=== PATIENT | female | born 1945 | race Caucasian/White ===

== ENCOUNTER 2016-12-26 20:02 | Emergency (ER) | payer MEDICARE, MEDICAID ==
--- NOTE | 2016-12-26 21:15 | RAD ---
Indication: Left shoulder pain. 2 views of left shoulder demonstrates a fracture through the surgical neck of left humerus with overriding of the fracture fragments. Clavicle is intact. IMPRESSION: Fracture with impaction surgical neck left humerus.
--- NOTE | 2016-12-26 23:03 | ED ---
Carlo Dumont Rebecca, scribed for Mao Garner MD on 12/26/16 at 2215 . Upper Extremity Pain - HPI Summary HPI Summary: Pt is a 71 y/o F who presents to the ED c/o L shoulder pain s/p mechanical fall. Fall occurred on 12/19 (1 week ago) and pain began immediately s/p fall. Pain is discrete to the L shoulder and has been constant and worsening since onset. Pain is currently ranked 8/10 and characterized as sharp. Sx aggravated and alleviated by nothing, unchanged by Tylenol. Denies numbness/tingling. She was evaluated by [facility] the day of the fall, confirmed L shoulder fx with an XR, was given a sling and D/C to home. - History of Current Complaint Chief Complaint: EDExtremityUpper Stated Complaint: SHOULDER INJURY Time Seen by Provider: 12/26/16 22:14 Hx Obtained From: Patient Mechanism Of Injury: Fall From A Standing Position Onset/Duration: Started Weeks Ago - 1 week ago, Still Present Timing: Constant Severity Initially: Moderate Severity Currently: Severe - 8/10 Pain Location: Shoulder - Left Character: Sharp Aggravating Factor(s): Nothing Alleviating Factor(s): Nothing Associated Signs & Symptoms: Positive: Negative. Negative: Numbness/Tingling - Allergies/Home Medications Allergies/Adverse Reactions: Allergies Allergy/AdvReac Type Severity Reaction Status Date / Time Aspirin Allergy Unknown Verified 12/26/16 20:15 Reaction Details Latex Allergy Unknown Verified 12/26/16 20:15 Reaction Details Penicillins Allergy Unknown Verified 12/26/16 20:15 Reaction Details Vinyl Ether Allergy Unknown Verified 12/26/16 20:15 Reaction Details PMH/Surg Hx/FS Hx/Imm Hx Cardiovascular History: Reports: Hx Hypertension Musculoskeletal History: Reports: Hx Rheumatoid Arthritis, Hx Fibromyalgia - Cancer History Hx Chemotherapy: No Hx Radiation Therapy: No Infectious Disease History: No Infectious Disease History: Denies: Traveled Outside the [place] in Last 30 Days - Family History Known Family History: Positive: Hypertension - Social History Alcohol Use: None Substance Use Type: Reports: None Smoking Status (MU): Current Every Day Smoker Amount Used/How Often: 1 PPD Review of Systems Positive: Arthralgia - L shoulder pain Neurological: Other - Denies tingling Negative: Numbness All Other Systems Reviewed And Are Negative: Yes Physical Exam Triage Information Reviewed: Yes Vital Signs On Initial Exam: Initial Vitals Temp Pulse Resp BP Pulse Ox 97.1 F 71 14 154/69 97 12/26/16 20:05 12/26/16 20:05 12/26/16 20:05 12/26/16 20:05 12/26/16 20:05 Vital Signs Reviewed: Yes Appearance: Positive: Well-Appearing, Pain Distress - mild discomfort Skin: Positive: Warm Head/Face: Positive: Normal Head/Face Inspection ENT: Positive: Hearing grossly normal Respiratory/Lung Sounds: Positive: Breath Sounds Present Musculoskeletal: Positive: Other - tender prox humerus with ecchymotic area pain to motion Neurological: Positive: Sensory/Motor Intact, Alert, Oriented to Person Place, Time Psychiatric: Positive: Anxious Diagnostics - Vital Signs Vital Signs Temp Pulse Resp BP Pulse Ox 12/26/16 21:17 98.7 F 62 15 122/63 96 12/26/16 20:05 97.1 F 71 14 154/69 97 - Laboratory Lab Statement: Any lab studies that have been ordered have been reviewed, and results considered in the medical decision making process. - Radiology Shoulder XR Radiology Interpretation Completed By: Radiologist - Fracture with impaction surgical neck left humerus. Course/Dx - Course Assessment/Plan: Pt is a 71 y/o F with a CC of L shoulder pain s/p mechanical fall 1 week ago. Pain began immediately upon impact and has been constant and worsening since onset. Denies numbness/tingling. Shoulder XR reveals "Fracture with impaction surgical neck left humerus." Pt will be D/C to home with a dx of shoulder fracture with a followup with ortho. - Diagnoses Provider Diagnoses: Shoulder fracture, left Discharge - Discharge Plan Condition: Stable Disposition: HOME Referrals: Margarito Elkins MD [Medical Doctor] - 3 Days (Follow up with Dr. Elkins, orthopedist, in the next 3 days. ) The documentation as recorded by the Carlo gresham Rebecca accurately reflects the service I personally performed and the decisions made by me, Mao Garner MD.
[2016-12-26] MEDS ORDERED: Acetaminophen TAB* 325 MG PO ONE (23:38)
[2016-12-26 23:53] VITALS: BP 155/77
== END 2016-12-26 23:52 | disposition home or self-care (01) ==
LOC: ED 20:02
DX: S42.212A Unspecified displaced fracture of surgical neck of left humerus, initial encounter for closed fracture (principal); W18.30XA Fall on same level, unspecified, initial encounter; I10 Essential (primary) hypertension; Z88.6 Allergy status to analgesic agent; Z88.0 Allergy status to penicillin; F17.290 Nicotine dependence, other tobacco product, uncomplicated
CPT/HCPCS: 99282; A9270-GY

== ENCOUNTER 2018-04-27 15:44 | Emergency (ER) | payer MEDICARE, MEDICAID ==
--- NOTE | 2018-04-27 18:24 | RAD ---
Indication: RIGHT shoulder pain Comparison: No relevant prior exams available on the [facility] for comparison. Technique: AP and scapular Y views RIGHT shoulder Report: Negative for fracture Normal acromioclavicular and glenohumeral joint alignment. Mild acromioclavicular and glenohumeral joint osteoarthritis. Bone density appears decreased throughout. Unremarkable soft tissue contours. IMPRESSION: #. Negative for fracture or malalignment. #. Mild acromioclavicular and glenohumeral joint osteoarthritis.
--- NOTE | 2018-04-27 18:28 | ED ---
Upper Extremity Pain - HPI Summary HPI Summary: [place] of chronic right shoulder pain after injury in August 2017. Injury was never evaluated. Patient states she has pain when trying to elevate her arm above shoulder level. Denies any new injury or trauma, fever, N/V. Denies loss of sensation or function distally on right upper extremity. - History of Current Complaint Chief Complaint: EDShoulderClavicleInj Stated Complaint: RT SHOULDER PAIN Time Seen by Provider: 04/27/18 16:49 Hx Obtained From: Patient Onset/Duration: Started Weeks Ago, Still Present Timing: Lasting Weeks Severity Initially: Moderate Severity Currently: Moderate Pain Location: Shoulder Character: Aching, Throbbing, Stiffness Aggravating Factor(s): Movement, Abduction Alleviating Factor(s): Nothing Associated Signs & Symptoms: Positive: Negative - Allergies/Home Medications Allergies/Adverse Reactions: Allergies Allergy/AdvReac Type Severity Reaction Status Date / Time adhesive Allergy Rash Verified 04/27/18 15:57 aspirin Allergy Swelling Verified 04/27/18 15:57 latex Allergy Swelling Verified 04/27/18 15:57 Penicillins Allergy Swelling Verified 04/27/18 15:57 Of Face,Lips,& Throat vinyl ether Allergy Shortness Verified 04/27/18 15:57 of Breath PMH/Surg Hx/FS Hx/Imm Hx Endocrine/Hematology History: Denies: Hx Anticoagulant Therapy Cardiovascular History: Reports: Hx Hypertension Musculoskeletal History: Reports: Hx Rheumatoid Arthritis, Hx Fibromyalgia Psychiatric History: Denies: Hx Autism - Cancer History Hx Chemotherapy: No Hx Radiation Therapy: No - Immunization History Date of Tetanus Vaccine: unk Date of Influenza Vaccine: unk Infectious Disease History: No Infectious Disease History: Denies: Traveled Outside the [place] in Last 30 Days - Family History Known Family History: Positive: Hypertension - Social History Alcohol Use: None Substance Use Type: Reports: None Smoking Status (MU): Current Every Day Smoker Amount Used/How Often: 1 PPD Review of Systems Constitutional: Negative Eyes: Negative ENT: Negative Cardiovascular: Negative Respiratory: Negative Gastrointestinal: Negative Genitourinary: Negative Positive: Arthralgia Skin: Negative Neurological: Negative Psychological: Normal All Other Systems Reviewed And Are Negative: Yes Physical Exam - Summary Physical Exam Summary: No deformity, ecchymosis, swelling, erythema, extra warmth noted to right shoulder. Patient has pain with abduction. PMS intact distally. Triage Information Reviewed: Yes Vital Signs On Initial Exam: Initial Vitals Temp Pulse Resp BP Pulse Ox 98.2 F 53 16 179/79 96 04/27/18 15:48 04/27/18 15:48 04/27/18 15:48 04/27/18 15:48 04/27/18 15:48 Vital Signs Reviewed: Yes Appearance: Positive: Well-Appearing Skin: Positive: Warm Head/Face: Positive: Normal Head/Face Inspection Eyes: Positive: Normal Neck: Positive: Supple Respiratory/Lung Sounds: Positive: Clear to Auscultation Cardiovascular: Positive: Normal Abdomen Description: Positive: Nontender Musculoskeletal: Positive: Normal Neurological: Positive: Normal Psychiatric: Positive: Normal AVPU Assessment: Alert - Thong Coma Scale Best Eye Response: 4 - Spontaneous Best Motor Response: 6 - Obeys Commands Best Verbal Response: 5 - Oriented Coma Scale Total: 15 Diagnostics - Vital Signs Vital Signs Temp Pulse Resp BP Pulse Ox 04/27/18 15:48 98.2 F 53 16 179/79 96 - Laboratory Lab Statement: Any lab studies that have been ordered have been reviewed, and results considered in the medical decision making process. - Radiology shoulder Xray Interpretation: No Acute Changes Radiology Interpretation Completed By: Radiologist Course/Dx - Course Course Of Treatment: [place] of chronic right shoulder pain after injury in August 2017. Injury was never evaluated. Patient states she has pain when trying to elevate her arm above shoulder level. Denies any new injury or trauma , fever, N/V. Denies loss of sensation or function distally on right upper extremity. No deformity, ecchymosis, swelling, erythema, extra warmth noted to right shoulder. Patient has pain with abduction. PMS intact distally. X-ray positive for osteoarthritis. 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 Hernandez. Return to the ED for any new or worsening symptoms - Billing Disposition and Condition Condition: STABLE Disposition: Home
[2018-04-27 18:44] VITALS: BP 165/88
== END 2018-04-27 18:43 | disposition home or self-care (01) ==
LOC: ED 15:44
DX: M19.011 Primary osteoarthritis, right shoulder (principal); Z88.6 Allergy status to analgesic agent; Z91.040 Latex allergy status; Z88.0 Allergy status to penicillin; Z91.048 Other nonmedicinal substance allergy status; Z82.49 Family history of ischemic heart disease and other diseases of the circulatory system; F17.210 Nicotine dependence, cigarettes, uncomplicated
CPT/HCPCS: 99282

== ENCOUNTER 2021-05-07 10:16 | Inpatient (IN) ==
[2021-05-07] MEDS ORDERED: methylPREDNISolone 125 mg 2 ML VIAL IV ONE (10:30)
[2021-05-07] MEDS ORDERED: Albuterol/Ipratropium NEB.SOL (2.5/0.5 MG) 3 ML NEB.SOLN INH ONE (10:30)
[2021-05-07 11:04] LABS: ABS Lymphocytes 1.3 10^3/ul (1.0-4.8); ABS Monocytes 0.5 10^3/ul (0-0.8); ABS Neutrophils 5.9 10^3/ul (1.5-7.7); Eosinophil % 0.4 %; Hematocrit 42 % (35-47); Hemoglobin 14.4 g/dL (12.0-16.0); Lymphocyte % 17.1 %; Mean Corpuscular HGB Conc 35 g/dL (31-36); Mean Corpuscular Hemoglobin 32 pg (27-31); Mean Corpuscular Volume 92 fL (80-97); Mean Platelet Volume 9.1 fL (7.4-10.4); Platelet Count 204 10^3/uL (150-450); Red Blood Count 4.51 10^6 /uL (3.70-4.87); Red Cell Distribution Width 14 % (10-15); White Blood Count 7.8 10^3/uL (3.5-10.8)
[2021-05-07 11:19] LABS: Calcium 9.3 mg/dL (8.6-10.3); EGFR African American 49.8 (>60); EGFR Non-African American 41.1 (>60); Potassium 3.5 mmol/L (3.5-5.0)
[2021-05-07 11:22] LABS: Troponin I 0.01 ng/mL (<0.03)
[2021-05-07] MEDS ORDERED: Azithromycin 500 mg/250 ml NS 500 MG/250 ML BAG IVPB ONE (11:43)
[2021-05-07] MEDS ORDERED: cefTRIAXone 1 gm/50 mL NS BAG 1 GM/50 ML BAG IV ONE (11:43)
[2021-05-07] MEDS ORDERED: Albuterol HFA INHALER 8 gm MDI INH ONE (11:44)
[2021-05-07] MEDS ORDERED: Albuterol HFA INHALER 8 gm MDI INH PRN (12:16)
[2021-05-07] MEDS ORDERED: NS 0.9% 1000 ml BAG 1,000 ML IV ONE (13:20)
[2021-05-07] MEDS ORDERED: Nicotine GUM 4MG FRUIT FLAVOR PO PRN (13:25)
[2021-05-07] MEDS ORDERED: hydrALAZINE 20 mg/ml 1 ML Vial IV IV SLOW PU ONE (13:33)
[2021-05-07 14:10] LABS: C Reactive Protein 13.52 mg/L (<8.01)
[2021-05-07] MEDS ORDERED: NS 0.9% 1000 ml BAG 1,000 ML IV SCH (16:15)
[2021-05-07] MEDS: Enoxaparin 40 MG/0.4 ML SYR SUBCUT SCH (16:42)
[2021-05-08] MEDS: Tiotropium Brom/Olodaterol MDI INH SCH (08:03)
[2021-05-08 10:53] LABS: ABS Lymphocytes 1.2 10^3/ul (1.0-4.8); ABS Monocytes 0.4 10^3/ul (0-0.8); ABS Neutrophils 10.4 10^3/ul (1.5-7.7); Hematocrit 41 % (35-47); Lymphocyte % 9.7 %; Mean Corpuscular HGB Conc 34 g/dL (31-36); Mean Corpuscular Hemoglobin 31 pg (27-31); Mean Corpuscular Volume 92 fL (80-97); Mean Platelet Volume 9.3 fL (7.4-10.4); Platelet Count 213 10^3/uL (150-450); Red Blood Count 4.47 10^6 /uL (3.70-4.87); Red Cell Distribution Width 14 % (10-15)
[2021-05-08 11:09] LABS: Calcium 9.9 mg/dL (8.6-10.3); EGFR Non-African American 49.6 (>60); Potassium 3.6 mmol/L (3.5-5.0)
[2021-05-08] MEDS ORDERED: cefTRIAXone 1 gm/50 mL NS BAG 1 GM/50 ML BAG IVPB SCH (12:00)
[2021-05-08] MEDS: Enoxaparin 40 MG/0.4 ML SYR SUBCUT SCH (12:32)
[2021-05-08] MEDS ORDERED: Azithromycin 500 mg/250 ml NS 500 MG/250 ML BAG IVPB SCH (13:00)
[2021-05-08] MEDS ORDERED: Potassium Chlor 20 meq TAB.ER PO ONE (16:15)
[2021-05-09 07:29] LABS: ABS Lymphocytes 2.1 10^3/ul (1.0-4.8); ABS Monocytes 0.5 10^3/ul (0-0.8); ABS Neutrophils 9.9 10^3/ul (1.5-7.7); Hematocrit 41 % (35-47); Lymphocyte % 16.5 %; Mean Corpuscular HGB Conc 34 g/dL (31-36); Mean Corpuscular Hemoglobin 32 pg (27-31); Mean Corpuscular Volume 93 fL (80-97); Mean Platelet Volume 9.6 fL (7.4-10.4); Platelet Count 219 10^3/uL (150-450); Red Blood Count 4.44 10^6 /uL (3.70-4.87); Red Cell Distribution Width 14 % (10-15); White Blood Count 12.4 10^3/uL (3.5-10.8)
[2021-05-09 07:43] LABS: Calcium 9.6 mg/dL (8.6-10.3); EGFR African American 58.1 (>60); Magnesium 1.8 mg/dL (1.9-2.7); Potassium 3.6 mmol/L (3.5-5.0)
[2021-05-09] MEDS ORDERED: Potassium Chlor 20 meq TAB.ER PO ONE (08:38)
[2021-05-09] MEDS: Tiotropium Brom/Olodaterol MDI INH SCH (09:35)
[2021-05-09] MEDS: Enoxaparin 40 MG/0.4 ML SYR SUBCUT SCH (15:28)
[2021-05-09] MEDS ORDERED: Al Hydrox/Mg Hydrox/Simet LIQ 30 ML UDC PO ONE (16:54)
[2021-05-10 06:36] LABS: ABS Lymphocytes 1.7 10^3/ul (1.0-4.8); ABS Monocytes 0.5 10^3/ul (0-0.8); ABS Neutrophils 6.1 10^3/ul (1.5-7.7); Hematocrit 43 % (35-47); Hemoglobin 14.6 g/dL (12.0-16.0); Lymphocyte % 20.8 %; Mean Corpuscular HGB Conc 34 g/dL (31-36); Mean Corpuscular Hemoglobin 31 pg (27-31); Mean Corpuscular Volume 92 fL (80-97); Mean Platelet Volume 9.4 fL (7.4-10.4); Platelet Count 220 10^3/uL (150-450); Red Blood Count 4.66 10^6 /uL (3.70-4.87); Red Cell Distribution Width 14 % (10-15); White Blood Count 8.4 10^3/uL (3.5-10.8)
[2021-05-10 06:54] LABS: Calcium 9.5 mg/dL (8.6-10.3); EGFR African American 67.1 (>60); EGFR Non-African American 55.5 (>60); Potassium 3.8 mmol/L (3.5-5.0)
[2021-05-10] MEDS: Tiotropium Brom/Olodaterol MDI INH SCH (11:02)
[2021-05-10 14:56] VITALS: BP 134/82
[2021-05-10] MEDS: Enoxaparin 40 MG/0.4 ML SYR SUBCUT SCH (15:53)
== END 2021-05-10 18:50 | disposition home or self-care (01) | DRG 189 ==
LOC: ED 10:16 → MED 10:16
PROVIDERS: ADMIT Internal Medicine; ATTEND Student in an Organized Health Care Education/Training Program